=== PATIENT | male | born 1995 | race Caucasian/White ===

== ENCOUNTER 2017-05-13 15:08 | Emergency (ER) | payer SELFPAY ==
[~2017-05-13] VITALS: Ht 182.9 cm; Wt 90.0 kg
[~2017-05-13 15:08] MED LIST: ALBU0.086 INH; ALBU6.7H INH; FEXO180 PO
[2017-05-13 15:10] VITALS: BP 143/79; PULSE 81; RESP 17; TEMP 98.9; O2SAT 97
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
[2017-05-13] MEDS ORDERED: IBUP800T23 PO (16:28)
== END 2017-05-13 17:17 | disposition home or self-care (01) ==
LOC: NEPK 15:08
DX: S62.101A Fracture of unspecified carpal bone, right wrist, initial encounter for closed fracture (principal); V19.3XXA Pedal cyclist (driver) (passenger) injured in unspecified nontraffic accident, initial encounter; J45.909 Unspecified asthma, uncomplicated
CPT/HCPCS: 29125; 73110